=== PATIENT | female | born 1940 | race Caucasian/White ===

== ENCOUNTER 2017-10-31 10:35 | Emergency (ER) | payer MEDICARE, OTHER ==
[~2017-10-31] VITALS: Ht 157.5 cm; Wt 58.0 kg
[2017-10-31 13:24] VITALS: BP 125/65
== END 2017-10-31 13:35 | disposition home or self-care (01) ==
LOC: ER 10:36
DX: R51 Headache (principal)
CPT/HCPCS: 70450; 99284

== ENCOUNTER 2018-05-29 07:46 | Emergency (ER) | payer MEDICARE, OTHER ==
[~2018-05-29] VITALS: Ht 158.8 cm; Wt 60.0 kg
[2018-05-29] MEDS ORDERED: diphenhydrAMINE 50 mg/ml inj IV ONE (08:20)
[2018-05-29] MEDS ORDERED: normal saline 1000ML IV soln IVB ONE ×2 (08:20→09:30)
[2018-05-29] MEDS ORDERED: metoclopramide 5 mg/ml inj IV ONE (08:20)
[2018-05-29 08:47] LABS: BASOPHILS % (AUTO) 0.3 % (0-1); EOSINOPHILS # (AUTO) 0.1 X10'3 (0-0.9); EOSINOPHILS % (AUTO) 0.8 % (0-6); HEMATOCRIT 37.7 % (35.0-45.0); HEMOGLOBIN 12.7 g/dl (12.0-16.0); LYMPHOCYTES # (AUTO) 1.1 X10'3 (1.1-4.8); LYMPHOCYTES % (AUTO) 14.9 % (21-51); MEAN CORPUSCULAR HEMOGLOBIN 31.3 PG (27.0-31.0); MEAN CORPUSCULAR HGB CONC 33.6 % (33.0-36.5); MEAN CORPUSCULAR VOLUME 93.2 FL (78-98); MEAN PLATELET VOLUME 7.6 FL (7.4-10.4); MONOCYTES # (AUTO) 0.3 X10'3 (0-0.9); MONOCYTES % (AUTO) 4.2 % (2-12); NEUTROPHILS # (AUTO) 5.9 X10'3 (1.8-7.7); NEUTROPHILS % (AUTO) 79.8 % (42-75); PLATELET COUNT 280 X10'3 (140-440); RED BLOOD COUNT 4.04 X10'6 (4.20-5.60); RED CELL DISTRIBUTION WIDTH 13.7 % (11.5-14.5); WHITE BLOOD COUNT 7.4 X10'3 (4.5-11.0)
[2018-05-29 09:04] LABS: ALANINE AMINOTRANSFERASE 22 U/L (12-78); ALBUMIN 3.6 G/DL (3.4-5.0); ALBUMIN/GLOBULIN RATIO 1.1 (1.1-1.5); ALKALINE PHOSPHATASE 68 IU/L (46-116); ANION GAP 10 (8-16); ASPARTATE AMINO TRANSFERASE 11 U/L (10-37); BILIRUBIN,TOTAL 0.4 MG/DL (0.1-1.0); BLOOD UREA NITROGEN 19 MG/DL (7-18); BUN/CREATININE RATIO 32.8 (6.6-38.0); CALCIUM 8.7 MG/DL (8.5-10.1); CHLORIDE 103 MMOL/L (99-107); CREATININE 0.58 MG/DL (0.40-0.90); GLUCOSE 137 MG/DL (70-104); POTASSIUM 3.5 MMOL/L (3.5-5.1); SODIUM 139 MMOL/L (135-145); TOTAL CARBON DIOXIDE 26.2 MMOL/L (24-32); TOTAL PROTEIN 6.9 G/DL (6.4-8.2); eGFR > 90 ML/MIN
[2018-05-29 09:08] LABS: ETHANOL < 0.010 GM/DL (0.0-0.010); TROPONIN I < 0.04 NG/ML (0.0-0.05)
[2018-05-29] MEDS ORDERED: meclizine 12.5mg tablet PO ONE (09:15)
[2018-05-29] MEDS ORDERED: MECL-111 PO (09:29)
[2018-05-29] MEDS ORDERED: LORazepam 2 mg/ml vial IV ONE (09:30)
[2018-05-29] MEDS ORDERED: ketorolac trometh. 30mg/ml inj. IV ONE (09:30)
[2018-05-29 09:32] LABS: CLARITY,URINE CLEAR (Clear); COLOR,URINE YELLOW (Yellow); GLUCOSE, URINE NEGATIVE (Neg); KETONES,URINE TRACE mg/dl (Neg); LEUKOCYTE ESTERASE ,URINE NEGATIVE (Neg); NITRITES, URINE NEGATIVE (Neg); OCCULT BLOOD,URINE NEGATIVE (Neg); PROTEIN,URINE NEGATIVE (Neg); UROBILINOGEN,URINE 0.2 E.U/dL (0.2-1.0)
[2018-05-29] MEDS ORDERED: ketorolac tromethamine 15mg/ml inj. IV ONE (09:35)
[2018-05-29 09:37] LABS: UA COLLECTION TYPE STRAIGHT CATH
[2018-05-29 10:39] VITALS: BP 117/54
== END 2018-05-29 10:51 | disposition home or self-care (01) ==
LOC: ER 07:46
DX: R42 Dizziness and giddiness (principal); R11.0 Nausea; R51 Headache; Z88.8 Allergy status to other drugs, medicaments and biological substances
CPT/HCPCS: 36415; 70450; 80053; 80320; 81003; 82948; 84484; 85025; 93005; 96361; 96374; 96375; 99285; J1200; J1885; J2060; J2765; J7030; J8597